=== PATIENT | male | born 2000 | race Two or more races ===

== ENCOUNTER → 2024-09-29 | Outpatient (CLI) | payer MEDICAID, SELFPAY ==
--- NOTE | 2024-09-29 16:27 | XR_ITS ---
Examination: PA lateral chest 2 views Technique: Upright PA lateral chest 2 views Exam date and time: September 29, 2024 1641 hrs. 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
== END | disposition home or self-care (01) ==
LOC: CDIM 16:19
PROVIDERS: PCP Family Medicine; Referring Provider Internal Medicine; Visit Provider Internal Medicine
DX: R91.8 Other nonspecific abnormal finding of lung field (principal)
CPT/HCPCS: 71046

== ENCOUNTER 2025-02-06 18:31 | Emergency (ER) | payer MEDICAID, SELFPAY ==
[2025-02-06 19:01] VITALS: BP 122/77; PULSE 82; RESP 18; TEMP 37.4; O2SAT 95
--- NOTE | 2025-02-06 19:04 | XR_ITS ---
Examination: PA chest single view FINDINGS: Upright PA chest single view Date and time: February 06, 2025, 1921 hours, comparison September 29, 2024. INDICATIONS: Coughing weakness 1 week. FINDINGS: Early bibasilar pneumonia. Normal heart size. The osseous structures are intact. IMPRESSION: Early bibasilar pneumonia.
--- NOTE | 2025-02-06 19:13 | EKG_ITS ---
[facility] Test Date: 2025-02-06 Pat Name: CIRILO DYE Department: Room: - Gender: Male General Activities Therapist: : 2000 Requested By: Faye Tiwari Order Number: [id number] Reading MD: Faye Tiwari Measurements Intervals [place] Rate: 83 P: 62 OK: 160 QRS: 107 QRSD: 105 T: 32 QT: 346 QTc: 409 Interpretive Statements SINUS RHYTHM RIGHT AXIS DEVIATION [QRS AXIS > 100] No previous ECG available for comparison /[id number]/[email or web address]/[id number]
[2025-02-06] MEDS: ALBUTEROL/IPRATROPIUM (Duoneb) RT SOL 3 ML NEBU INH (20:03)
[2025-02-06 20:06] VITALS: PULSE 96; RESP 18; O2SAT 98
[2025-02-06 20:43] LABS: Basophils # (Auto) 0.1 Thou/mm3 (0.0-0.2); Basophils % (Auto) 1 % (0-2.5); Eosinophils # (Auto) 0.9 Thou/mm3 (0.0-0.5); Eosinophils % (Auto) 7 % (0-10); Hematocrit 44.7 % (41.0-53.0); Hemoglobin 14.9 g/dL (13.5-16.0); Immature Granulocytes Auto 0.10 Thou/mm3 (0.00-0.00); Lymphocytes # (Auto) 2.6 Thou/mm3 (1.0-4.8); Lymphocytes % (Auto) 20 % (10-50); Mean Corpuscular HGB Conc 33.3 g/dl (31.0-37.0); Mean Corpuscular Hemoglobin 28.0 pg (25.0-35.0); Mean Corpuscular Volume 84 fL (80-100); Monocytes # (Auto) 1.0 Thou/mm3 (0.0-0.8); Monocytes % (Auto) 8 % (0-12); Neutrophils # (Auto) 8.5 Thou/mm3 (1.8-7.7); Neutrophils % (Auto) 64 % (37-80); Nucleated Red Blood Cell # 0.00 Thou/mm3 (0.00-0.00); Nucleated Red Blood Cell % 0 /100 WBC (0); Platelet Count 423 Thou/mm3 (140-440); RDW Standard Deviation 37.1 fL (35.1-43.9); Red Blood Count 5.32 Miln/mm3 (4.50-5.90); White Blood Count 13.2 Thou/mm3 (3.8-10.6)
[2025-02-06 21:09] LABS: Alanine Aminotransferase 28 U/L (10-49); Albumin, Serum 4.8 gm/dL (3.5-5.0); Albumin/Globulin Ratio 1.5 (1.2-2.2); Alkaline Phosphatase 112 U/L (46-116); Anion Gap 9 (7-16); Aspartate Amino Transferase 25 U/L (0-34); B-Type Natriuretic Peptide < 20 pg/mL (0-100); BUN/Creatinine Ratio 18 Ratio (12-20); Bilirubin,Total 0.3 mg/dL (0.3-1.2); Blood Urea Nitrogen 14 mg/dL (9-23); Calcium 10.2 mg/dL (8.3-10.6); Calcium (Corrected) 10.2 mg/dL (8.5-10.1); Carbon Dioxide 26.4 mMol/L (20.0-31.0); Chloride 100 mMol/L (98-107); Creatinine (Component) 0.8 mg/dL (0.6-1.3); Estimated Creatinine Clearance 127.4 mL/min (>60); Globulin 3.2 gm/dL (2.3-3.5); Glucose 108 mg/dL (74-106); Osmolality,Calculated 271 (275-295); Potassium 4.3 mMol/L (3.4-5.1); Sodium 135 mMol/L (136-145); Total Protein 8.0 gm/dL (5.7-8.2); Troponin I < 0.002 ng/mL (0.0-0.045); eGFR > 60 See Note
--- NOTE | 2025-02-06 21:41 | PD.EDCHEST ---
ED Chest Pain RME/HPI General Chief Complaint: Shortness of Breath/Dyspnea Stated Complaint: SOB, COUGH X 1 WK, CHEST PAIN, NIGHT SWEATS Time Seen by Provider: 02/06/25 18:36 Arrival date/time: 02/06/25 This is a case of 24-year-old male with no medical history came in in the emergency room due to chest pain and shortness of breath history of present illness started 1 week prior to consult when the patient started to have cough productive in character with nasal congestion fever and chills worsening of the symptoms now with shortness of breath and chest pain this patient decided to sought consult here in the emergency room Related Data Previous Rx's ?Medication ?Instructions ?Recorded pantoprazole 40 mg tablet,delayed 40 mg PO QDAY #14 tabs 06/07/20 release (Protonix) amoxicillin 875 mg-potassium 1 tab PO BID #14 tabs 05/14/23 clavulanate 125 mg tablet dextromethorphan-guaifenesin 10 10 ml PO Q8H PRN cough #500 mL 05/15/23 mg-100 mg/5 mL oral liquid ibuprofen 600 mg tablet 600 mg PO TID PRN pain #30 tabs 05/15/23 fluconazole 200 mg tablet 400 mg (2 x 200 mg) PO QDAY #90 05/16/23 (Diflucan) tabs albuterol sulfate 90 mcg/actuation 2 puff inhalation Q6H PRN 02/06/25 aerosol inhaler (Ventolin HFA) shortness of breath or wheezing #8.5 grams amoxicillin 875 mg-potassium 1 tab PO BID #20 tabs 02/06/25 clavulanate 125 mg tablet azithromycin 250 mg tablet See Rx Instructions PO .COMPLEX #6 02/06/25 tabs promethazine-DM 6.25 mg-15 mg/5 mL 5 ml PO Q6H PRN cough #240 mL 02/06/25 oral syrup Allergies Allergy/AdvReac Type Severity Reaction Status Date / Time No Known Allergies Allergy Verified 02/06/25 18:34 Course Orders Category Date Time Status Bedside COVID-19 Antigen Test NOW Care 02/06/25 19:04 Active Bedside Influenza A&B Antigen Test NOW Care 02/06/25 19:04 Completed EKG (ED ONLY) *Do not use* NOW Care 02/06/25 19:13 Completed EKG (ED Only) Stat Exams 02/06/25 19:13 Draft XR chest 1V Stat Exams 02/06/25 19:04 Completed BNP [B-Type Natriuretic Peptide] Stat Lab 02/06/25 20:20 Completed CBC Stat Lab 02/06/25 20:20 Completed CMP [Comprehensive Metabolic Panel] Stat Lab 02/06/25 20:20 Completed Troponin I Stat Lab 02/06/25 20:20 Completed Albuterol/Ipratr Rt Joana [Duoneb Rt Joana] Med 02/06/25 19:09 Discontinued 3 ml INH X1 ONE cefTRIAXone [Rocephin] 1,000 mg Med 02/06/25 21:37 Ordered Lidocaine 1% 20 ml [Xylocaine 1% 20 ML] 2.1 ml IM X1 Vital Signs Vital signs: Vital Signs Temperature 99.3 F 02/06/25 19:01 Pulse Rate 82 02/06/25 19:01 Respiratory Rate 18 02/06/25 19:01 Blood Pressure 122/77 02/06/25 19:01 Pulse Oximetry (%) 95 02/06/25 19:01 Oxygen Delivery Method Room Air 02/06/25 19:01 Chest Pain Medications / Prescriptions Medication administrations:: Medication Administration History Ceftriaxone Sodium 1,000 mg/ (Lidocaine HCl 2.1 ml) 0 mg IM X1 ONE Stop: 02/06/25 21:38 Discontinued Medications Albuterol/Ipratropium (Albuterol/Ipratropium (Duoneb) Rt Joana 3 Ml Nebu) 3 ml INH X1 ONE Stop: 02/06/25 19:10 Last Admin: 02/06/25 20:03 Dose: 3 ml Documented By: MARIVEL Discharge Plan Plan Patient Disposition: HOME (Self Care) Patient condition on transfer: Stable Prescriptions/Referrals Prescriptions/Med Rec: New amoxicillin-pot clavulanate 875-125 mg tablet 1 tab PO BID Qty: 20 0RF azithromycin 250 mg tablet See Rx Instructions .ROUTE .COMPLEX Qty: 6 0RF Rx Instructions: For 250 mg dose pack: take 500 mg today (day 1), then 250 mg for 4 days (days 2-5) promethazine-DM 6.25-15 mg/5 mL syrup 5 ml PO Q6H PRN (Reason: cough) Qty: 240 0RF albuterol sulfate [Ventolin HFA] 90 mcg/actuation HFA aerosol inhaler 2 puff inhalation Q6H PRN (Reason: shortness of breath or wheezing) Qty: 8.5 0RF No Action pantoprazole [Protonix] 40 mg tablet,delayed release (DR/EC) 40 mg PO QDAY Qty: 14 0RF amoxicillin-pot clavulanate 875-125 mg tablet 1 tab PO BID Qty: 14 0RF dextromethorphan-guaifenesin 10-100 mg/5 mL liquid 10 ml PO Q8H PRN (Reason: cough) Qty: 500 0RF ibuprofen 600 mg tablet 600 mg PO TID PRN (Reason: pain) Qty: 30 0RF fluconazole [Diflucan] 200 mg tablet 400 mg PO QDAY Qty: 90 0RF Referrals: No Primary/Family,Physician [Primary Care Provider] - In 1 week Problem List Clinical Impression: Chest pain of unknown etiology, Pneumonia Patient/Caregiver Discharge Instructions Education Materials: ED Chest Pain, Uncertain Cause, ED Pneumonia (Adult) Additional Instructions: Follow-up with your primary care physician in 2 days for reevaluation worsening symptoms or any emergent concerns such as fever chills shortness of breath retraction wheezing unable to breathe call 911 or go to the nearest emergency room take your medication as directed finish the course of antibiotic increase water intake keep hydrated follow-up with your primary care physician to be referred to acute coordinator for further evaluation and treatment of chest pain for possible echocardiogram stress test and Holter monitor Print Language: Kittitian Stand Alone Forms: Sadie Award Info., Patient Portal Info Letter PA/CAKE TESTER Supervising Physician PA/CAKE TESTER Supervising Physician: Dr vela
[2025-02-06] MEDS: cefTRIAXone 1,000 MG, LIDOCAINE 1% 20 ML 2.1 ML IM (22:04)
== END 2025-02-06 22:08 | disposition home or self-care (01) ==
PROVIDERS: Nurse Practitioner Family; Emergency Provider Emergency Medicine
DX: J18.9 Pneumonia, unspecified organism (principal)
CPT/HCPCS: 36415; 71045; 80053; 83880; 84484; 85025; 87400; 87811; 93005; 94640; 96372; 99283; A9270; J0696; J3490